=== PATIENT | male | born 1965 | race African-American/Black ===

== ENCOUNTER 2019-12-07 09:56 | Emergency (ER) | payer OTHER, MEDICAID ==
[~2019-12-07] VITALS: Ht 177.8 cm; Wt 127.0 kg
[2019-12-07 11:05] VITALS: BP 120/93
== END 2019-12-07 11:13 | disposition home or self-care (01) ==
LOC: ER 09:56
DX: U07.1 COVID-19 (principal); I10 Essential (primary) hypertension; Z86.73 Personal history of transient ischemic attack (TIA), and cerebral infarction without residual deficits
CPT/HCPCS: 99283; C9803; U0003